=== PATIENT | male | born 1975 | race Hispanic/Latino ===

== ENCOUNTER 2017-11-03 12:48 | Emergency (ER) | payer SELFPAY ==
[2017-11-03] MEDS ORDERED: IBUPROFEN 600 MG TABLET ONE (13:30)
== END 2017-11-03 13:36 | disposition home or self-care (01) ==
LOC: EDH 12:48
DX: S60.221A Contusion of right hand, initial encounter (principal); Z72.0 Tobacco use; W23.0XXA Caught, crushed, jammed, or pinched between moving objects, initial encounter; Y93.89 Activity, other specified; Y92.810 Car as the place of occurrence of the external cause; Y99.8 Other external cause status
CPT/HCPCS: 73130

== ENCOUNTER 2020-07-20 22:54 | Emergency (ER) | payer OTHER ==
[2020-07-20] MEDS ORDERED: ACETAMINOPHEN-CODEINE 300/30MG TAB ONE (23:11)
== END 2020-07-20 23:40 | disposition home or self-care (01) ==
LOC: EDH 22:54
DX: S50.01XA Contusion of right elbow, initial encounter (principal); S70.01XA Contusion of right hip, initial encounter; Z91.030 Bee allergy status; Z91.038 Other insect allergy status; W01.0XXA Fall on same level from slipping, tripping and stumbling without subsequent striking against object, initial encounter; Y93.89 Activity, other specified; Y92.89 Other specified places as the place of occurrence of the external cause; Y99.8 Other external cause status

== ENCOUNTER 2021-03-24 09:15 | Emergency (ER) | payer SELFPAY ==
[~2021-03-24] VITALS: Ht 175.3 cm; Wt 70.3 kg
[2021-03-24 09:52] LABS: BASOPHILS % (AUTO) 0.8 % (0.0-5.0); EOSINOPHILS % (AUTO) 0.3 % (0.0-8.0); HEMATOCRIT 37.3 % (42-54); LYMPHOCYTES % (AUTO) 11.4 % (21.0-51.0); MEAN CORPUSCULAR HEMOGLOBIN 36.3 pg (27.0-33.0); MEAN CORPUSCULAR HGB CONC 34.9 g/dL (32.0-36.0); MEAN CORPUSCULAR VOLUME 104.2 fL (79-99); MONOCYTES % (AUTO) 13.2 % (3.0-13.0); PLATELET COUNT (AUTO) 108 K/uL (130-400); RED BLOOD CELL COUNT(AUTO) 3.58 MIL/uL (4.50-6.20); RED CELL DISTRIBUTION WIDTH 14.1 % (11.0-15.5); WHITE BLOOD COUNT (AUTO) 7.1 K/uL (4.8-10.8)
[2021-03-24 10:03] LABS: ALBUMIN 2.8 g/dL (3.5-5.0); BILIRUBIN,TOTAL 2.4 mg/dL (0.2-1.0); CREATININE 0.6 mg/dL (0.5-1.5); TOTAL PROTEIN, SERUM 8.1 g/dL (6.0-8.3)
[2021-03-24] MEDS ORDERED: POTASSIUM BICARB/CIT AC 25 MEQ TABLET.EFF ONE (10:05)
[2021-03-24] MEDS: POTASSIUM BICARB/CIT AC 25 MEQ TABLET.EFF PO SCH ×2 (10:08→10:33)
[2021-03-24 10:11] LABS: APPEARANCE,URINE Clear (CLEAR); BILIRUBIN,URINE Moderate (NEGATIVE); COLOR,URINE Dark Yellow (YELLOW); GLUCOSE, URINE (UA) Negative (NEGATIVE); KETONES,URINE >=80 mg/dL (NEGATIVE); LEUKOCYTE ESTERASE ,URINE Trace (NEGATIVE); NITRATE,URINE Negative (NEGATIVE); OCCULT BLOOD,URINE Negative (NEGATIVE); PROTEIN,URINE Trace mg/dL (NEGATIVE)
[2021-03-24 10:29] LABS: BACTERIA,URINE Few /HPF (None Seen); RBC,URINE None Seen /HPF (0-1); WBC,URINE 0-1 /HPF (0-1)
[2021-03-24 10:30] LABS: SQUAMOUS EPITHELIAL CELL,UR None Seen /HPF (0-2)
[2021-03-24] MEDS ORDERED: FAMO-136 PO (10:30)
[2021-03-24 11:46] VITALS: BP 143/65
== END 2021-03-24 11:48 | disposition home or self-care (01) ==
LOC: EDH 09:15
DX: K29.70 Gastritis, unspecified, without bleeding (principal); F10.10 Alcohol abuse, uncomplicated; E46 Unspecified protein-calorie malnutrition; R79.89 Other specified abnormal findings of blood chemistry
CPT/HCPCS: 36415; 80053; 81001; 82150; 83690; 85025

== ENCOUNTER 2021-04-15 09:33 | Emergency (ER) | payer SELFPAY ==
[~2021-04-15] VITALS: Ht 175.3 cm; Wt 65.8 kg
[~2021-04-15 09:33] MED LIST: FAMO-136 PO
[2021-04-15 09:57] LABS: BASOPHILS % (AUTO) 1.3 % (0.0-5.0); EOSINOPHILS % (AUTO) 2.2 % (0.0-8.0); HEMATOCRIT 35.2 % (42-54); LYMPHOCYTES % (AUTO) 25.5 % (21.0-51.0); MEAN CORPUSCULAR HGB CONC 34.4 g/dL (32.0-36.0); MEAN CORPUSCULAR VOLUME 104.8 fL (79-99); MONOCYTES % (AUTO) 13.3 % (3.0-13.0); NEUTROPHILS % (AUTO) 57.5 % (40.0-77.0); PLATELET COUNT (AUTO) 146 K/uL (130-400); RED BLOOD CELL COUNT(AUTO) 3.36 MIL/uL (4.50-6.20); RED CELL DISTRIBUTION WIDTH 13.9 % (11.0-15.5); WHITE BLOOD COUNT (AUTO) 5.5 K/uL (4.8-10.8)
[2021-04-15] MEDS ORDERED: NITROGLYCERIN 1GM OINT 1 INCH/1GM TD SCH (10:00)
[2021-04-15] MEDS ORDERED: ASPIRIN 81MG CHEW TAB PO SCH (10:00)
[2021-04-15 10:11] LABS: INR 1.39 (0.85-1.15); PROTHROMBIN TIME 14.7 SEC (9.6-11.6)
[2021-04-15 10:12] LABS: PARTIAL THROMBOPLASTIN TIME 34.9 SEC (26.3-35.5)
[2021-04-15 10:13] LABS: ALBUMIN 2.2 g/dL (3.5-5.0); BILIRUBIN,TOTAL 2.5 mg/dL (0.2-1.0); CREATININE 0.7 mg/dL (0.5-1.5); TOTAL PROTEIN, SERUM 7.2 g/dL (6.0-8.3)
[2021-04-15 10:14] LABS: POTASSIUM 2.9 mmol/L (3.5-5.1)
[2021-04-15 10:19] LABS: B-TYPE NATRIURETIC PEPTIDE 57 pg/mL (0-100)
[2021-04-15 10:35] LABS: AMPHET/METH SCREEN,URINE NEGATIVE (NEGATIVE); BARBITURATE SCREEN, URINE NEGATIVE (NEGATIVE); BENZODIAZEPINES SCREEN,URINE NEGATIVE (NEGATIVE); CANNABINOID SCREEN,URINE POSITIVE (NEGATIVE); COCAINE SCREEN,URINE NEGATIVE (NEGATIVE); OPIATE SCREEN,URINE NEGATIVE (NEGATIVE); PHENCYCLIDINE SCREEN,URINE NEGATIVE (NEGATIVE)
[2021-04-15] MEDS ORDERED: POTASSIUM BICARB/CIT AC 25 MEQ TABLET.EFF PO SCH (11:30)
[2021-04-15 11:58] VITALS: BP 136/88
[2021-04-15] MEDS ORDERED: SPIR25TA6 PO (12:46)
[2021-04-15 13:00] VITALS: BP 118/72
== END 2021-04-15 13:17 | disposition home or self-care (01) ==
LOC: EDH 09:33
DX: R18.8 Other ascites (principal); F10.10 Alcohol abuse, uncomplicated; E43 Unspecified severe protein-calorie malnutrition; Z87.891 Personal history of nicotine dependence; Z79.899 Other long term (current) drug therapy; Z98.890 Other specified postprocedural states
CPT/HCPCS: 36415; 71045; 76705; 80053; 80305; 83880; 84484; 85025; 85610; 85730

== ENCOUNTER 2021-04-28 11:48 | Emergency (ER) | payer SELFPAY ==
[~2021-04-28] VITALS: Ht 172.7 cm; Wt 70.3 kg
[~2021-04-28 11:48] MED LIST changes: +SPIR25TA6 PO
[2021-04-28 12:27] LABS: BASOPHILS % (AUTO) 0.7 % (0.0-5.0); EOSINOPHILS % (AUTO) 1.7 % (0.0-8.0); HEMATOCRIT 36.3 % (42-54); LYMPHOCYTES % (AUTO) 28.4 % (21.0-51.0); MEAN CORPUSCULAR HEMOGLOBIN 35.5 pg (27.0-33.0); MEAN CORPUSCULAR HGB CONC 34.7 g/dL (32.0-36.0); MEAN CORPUSCULAR VOLUME 102.3 fL (79-99); MONOCYTES % (AUTO) 12.3 % (3.0-13.0); NEUTROPHILS % (AUTO) 56.7 % (40.0-77.0); PLATELET COUNT (AUTO) 146 K/uL (130-400); RED BLOOD CELL COUNT(AUTO) 3.55 MIL/uL (4.50-6.20); RED CELL DISTRIBUTION WIDTH 13.2 % (11.0-15.5); WHITE BLOOD COUNT (AUTO) 5.5 K/uL (4.8-10.8)
[2021-04-28 12:40] LABS: APPEARANCE,URINE Cloudy (CLEAR); BILIRUBIN,URINE Moderate (NEGATIVE); COLOR,URINE Dark Yellow (YELLOW); GLUCOSE, URINE (UA) Negative (NEGATIVE); KETONES,URINE Trace mg/dL (NEGATIVE); LEUKOCYTE ESTERASE ,URINE Trace (NEGATIVE); NITRATE,URINE Positive (NEGATIVE); OCCULT BLOOD,URINE Negative (NEGATIVE); PH,URINE 5.5 (5.0-8.0); PROTEIN,URINE Trace mg/dL (NEGATIVE)
[2021-04-28 12:42] LABS: INR 1.29 (0.85-1.15); PROTHROMBIN TIME 13.7 SEC (9.6-11.6)
[2021-04-28 12:43] LABS: PARTIAL THROMBOPLASTIN TIME 32.4 SEC (26.3-35.5)
[2021-04-28 12:46] LABS: BACTERIA,URINE Rare /HPF (None Seen); MUCUS,URINE Moderate LPF (None Seen); RBC,URINE 0-1 /HPF (0-1); SQUAMOUS EPITHELIAL CELL,UR Rare /HPF (0-2); WBC,URINE 0-1 /HPF (0-1)
[2021-04-28 12:50] LABS: CREATININE 0.8 mg/dL (0.5-1.5); POTASSIUM 3.1 mmol/L (3.5-5.1)
[2021-04-28 12:55] LABS: ALBUMIN 2.3 g/dL (3.5-5.0); BILIRUBIN,TOTAL 1.9 mg/dL (0.2-1.0); TOTAL PROTEIN, SERUM 7.4 g/dL (6.0-8.3)
[2021-04-28] MEDS ORDERED: POTASSIUM BICARB/CIT AC 25 MEQ TABLET.EFF PO ONE (13:30)
[2021-04-28] MEDS ORDERED: ALBUMIN (HUMAN) 25% 200 ML IV ONE (15:03)
[2021-04-28] MEDS ORDERED: SODIUM BICARB 50MEQ 50ML VIAL 50 ML ONE (15:03)
[2021-04-28] MEDS ORDERED: CEFTRIAXONE 1G VIAL IVP ONE (16:00)
[2021-04-28] MEDS ORDERED: ALBUMIN (HUMAN) 25% 200 ML IV STA (17:30)
[2021-04-28] MEDS ORDERED: CEPH500B PO (17:48)
[2021-04-28 18:55] VITALS: BP 110/78
== END 2021-04-28 18:58 | disposition home or self-care (01) ==
LOC: EDH 11:48
DX: K70.31 Alcoholic cirrhosis of liver with ascites (principal); E87.6 Hypokalemia; N39.0 Urinary tract infection, site not specified; Z79.899 Other long term (current) drug therapy; Z87.891 Personal history of nicotine dependence
CPT/HCPCS: 36415; 49083; 71045; 80053; 81001; 83690; 83880; 84484; 85025; 85610; 85730; 87088; 96365; 96375; 99285; C1729; J0696; J3490; P9046

== ENCOUNTER 2021-04-30 16:54 | Emergency (ER) | payer SELFPAY ==
[~2021-04-30] VITALS: Ht 170.2 cm; Wt 65.8 kg
[~2021-04-30 16:54] MED LIST changes: +CEPH500B PO
[2021-04-30 16:55] VITALS: BP 95/52
[2021-04-30 18:15] LABS: EOSINOPHILS % (AUTO) 3.1 % (0.0-8.0); HEMATOCRIT 37.3 % (42-54); LYMPHOCYTES % (AUTO) 32.1 % (21.0-51.0); MEAN CORPUSCULAR HEMOGLOBIN 34.9 pg (27.0-33.0); MEAN CORPUSCULAR HGB CONC 33.5 g/dL (32.0-36.0); MEAN CORPUSCULAR VOLUME 104.2 fL (79-99); MONOCYTES % (AUTO) 12.1 % (3.0-13.0); NEUTROPHILS % (AUTO) 51.5 % (40.0-77.0); PLATELET COUNT (AUTO) 143 K/uL (130-400); RED BLOOD CELL COUNT(AUTO) 3.58 MIL/uL (4.50-6.20); RED CELL DISTRIBUTION WIDTH 13.1 % (11.0-15.5); WHITE BLOOD COUNT (AUTO) 4.9 K/uL (4.8-10.8)
[2021-04-30 18:28] LABS: CREATININE 0.7 mg/dL (0.5-1.5); POTASSIUM 3.7 mmol/L (3.5-5.1)
[2021-04-30 18:32] LABS: ALBUMIN 2.6 g/dL (3.5-5.0); BILIRUBIN,TOTAL 1.4 mg/dL (0.2-1.0)
[2021-04-30 18:44] LABS: B-TYPE NATRIURETIC PEPTIDE 28 pg/mL (0-100)
== END 2021-05-01 02:12 | disposition left against medical advice (07) ==
LOC: EDH 16:54
DX: N48.89 Other specified disorders of penis (principal); Z53.21 Procedure and treatment not carried out due to patient leaving prior to being seen by health care provider
CPT/HCPCS: 36415; 71045; 80053; 83880; 85025

== ENCOUNTER 2021-05-01 04:58 | Inpatient (IN) | payer SELFPAY ==
[~2021-05-01] VITALS: Ht 170.2 cm; Wt 65.0 kg
[2021-05-01 05:42] LABS: BASOPHILS % (AUTO) 0.9 % (0.0-5.0); EOSINOPHILS % (AUTO) 2.6 % (0.0-8.0); HEMATOCRIT 38.3 % (42-54); LYMPHOCYTES % (AUTO) 30.8 % (21.0-51.0); MEAN CORPUSCULAR HGB CONC 33.9 g/dL (32.0-36.0); MEAN CORPUSCULAR VOLUME 103.2 fL (79-99); MONOCYTES % (AUTO) 10.5 % (3.0-13.0); NEUTROPHILS % (AUTO) 54.7 % (40.0-77.0); PLATELET COUNT (AUTO) 128 K/uL (130-400); RED BLOOD CELL COUNT(AUTO) 3.71 MIL/uL (4.50-6.20); RED CELL DISTRIBUTION WIDTH 13.1 % (11.0-15.5); WHITE BLOOD COUNT (AUTO) 5.7 K/uL (4.8-10.8)
[2021-05-01 05:49] LABS: CREATININE 0.6 mg/dL (0.5-1.5); POTASSIUM 3.7 mmol/L (3.5-5.1)
[2021-05-01 05:54] LABS: ALBUMIN 2.6 g/dL (3.5-5.0); BILIRUBIN,TOTAL 1.5 mg/dL (0.2-1.0)
[2021-05-01] MEDS ORDERED: FUROSEMIDE 20MG VIAL ONE (06:50)
[2021-05-01] MEDS ORDERED: FUROSEMIDE 20MG VIAL IV SCH (07:00)
[2021-05-01 07:10] LABS: APPEARANCE,URINE Clear (CLEAR); BILIRUBIN,URINE Small (NEGATIVE); COLOR,URINE Dark Yellow (YELLOW); GLUCOSE, URINE (UA) Negative (NEGATIVE); KETONES,URINE Trace mg/dL (NEGATIVE); LEUKOCYTE ESTERASE ,URINE Negative (NEGATIVE); NITRATE,URINE Negative (NEGATIVE); OCCULT BLOOD,URINE Negative (NEGATIVE); PROTEIN,URINE POS 1+ mg/dL (NEGATIVE)
[2021-05-01 07:42] LABS: RBC,URINE 0-1 /HPF (0-1)
[2021-05-01 07:44] LABS: BACTERIA,URINE Rare /HPF (None Seen); SQUAMOUS EPITHELIAL CELL,UR Rare /HPF (0-2)
[2021-05-01] MEDS: SPIRONOLACTONE 25 MG TAB PO SCH (11:51)
[2021-05-01] MEDS: CEFTRIAXONE 1G VIAL IVP SCH (11:51)
[2021-05-01 22:23] VITALS: BP 105/64
[2021-05-02 03:55] VITALS: BP 103/64
[2021-05-02 07:00] VITALS: BP 113/74
[2021-05-02 07:47] LABS: HEMATOCRIT 35.8 % (42-54); MEAN CORPUSCULAR HGB CONC 34.6 g/dL (32.0-36.0); MEAN CORPUSCULAR VOLUME 101.1 fL (79-99); RED BLOOD CELL COUNT(AUTO) 3.54 MIL/uL (4.50-6.20); RED CELL DISTRIBUTION WIDTH 13.2 % (11.0-15.5); WHITE BLOOD COUNT (AUTO) 5.3 K/uL (4.8-10.8)
[2021-05-02 08:07] LABS: ALBUMIN 2.1 g/dL (3.5-5.0); BILIRUBIN,TOTAL 1.4 mg/dL (0.2-1.0); CREATININE 0.7 mg/dL (0.5-1.5); POTASSIUM 3.6 mmol/L (3.5-5.1); TOTAL PROTEIN, SERUM 6.1 g/dL (6.0-8.3)
[2021-05-02 08:27] LABS: ABG BASE EXCESS 1.7 mmol/L (-2.0-3.0); ABG HCO3 23.1 mmol/L (21.0-28.0); ABG OXYGEN SATURATION 96.3 % (95.0-99.0); ABG PCO2 28 mmHg (35-48)
[2021-05-02] MEDS ORDERED: FUROSEMIDE 40 MG TABLET PO SCH (09:00)
[2021-05-02] MEDS: SPIRONOLACTONE 25 MG TAB PO SCH (09:06)
[2021-05-02] MEDS: CEFTRIAXONE 1G VIAL IVP SCH (10:58)
[2021-05-02 11:00] VITALS: BP 107/67
[2021-05-02 15:00] VITALS: BP 104/61
[2021-05-02] MEDS: FUROSEMIDE 40 MG TABLET PO SCH (20:11)
[2021-05-02 21:26] VITALS: BP 114/69
[2021-05-03 02:10] VITALS: BP 106/65
[2021-05-03 04:57] VITALS: BP 104/65
[2021-05-03 07:00] VITALS: BP 111/70
[2021-05-03] MEDS ORDERED: FOLIC ACID 1 MG TABLET PO SCH (09:00)
[2021-05-03] MEDS ORDERED: THIAMINE HCL 100 MG TABLET PO SCH (09:00)
[2021-05-03 09:50] LABS: HEMATOCRIT 35.9 % (42-54); MEAN CORPUSCULAR HEMOGLOBIN 35.4 pg (27.0-33.0); MEAN CORPUSCULAR HGB CONC 34.8 g/dL (32.0-36.0); MEAN CORPUSCULAR VOLUME 101.7 fL (79-99); RED BLOOD CELL COUNT(AUTO) 3.53 MIL/uL (4.50-6.20); RED CELL DISTRIBUTION WIDTH 13.1 % (11.0-15.5); WHITE BLOOD COUNT (AUTO) 5.5 K/uL (4.8-10.8)
[2021-05-03 10:09] LABS: ALBUMIN 2.2 g/dL (3.5-5.0); BILIRUBIN,TOTAL 1.4 mg/dL (0.2-1.0); CREATININE 0.7 mg/dL (0.5-1.5); POTASSIUM 3.4 mmol/L (3.5-5.1); TOTAL PROTEIN, SERUM 6.3 g/dL (6.0-8.3)
[2021-05-03] MEDS: SPIRONOLACTONE 25 MG TAB PO SCH (10:34)
[2021-05-03] MEDS: CEFTRIAXONE 1G VIAL IVP SCH (10:34)
[2021-05-03] MEDS: FUROSEMIDE 40 MG TABLET PO SCH (10:44)
[2021-05-03 11:00] VITALS: BP 102/65
[2021-05-03] MEDS ORDERED: FURO20TA6 PO (14:40)
[2021-05-03 15:00] VITALS: BP 98/66
[2021-05-04 09:15] LABS: CHLAMYDIA DNA N.A.AMPLIFY Negative (Negative)
== END 2021-05-03 16:35 | disposition home or self-care (01) | DRG 729 ==
LOC: EDH 04:58 → INTOOBSV 04:59 → OBSVTOIN 04:59 → EDHIP 04:59 → 3CH 22:23
PROVIDERS: ADMIT Internal Medicine; ATTEND Internal Medicine
DX: N48.89 Other specified disorders of penis (principal); R18.8 Other ascites; D53.9 Nutritional anemia, unspecified; N50.89 Other specified disorders of the male genital organs; D69.59 Other secondary thrombocytopenia; Z20.822 Contact with and (suspected) exposure to COVID-19; N47.1 Phimosis; E88.09 Other disorders of plasma-protein metabolism, not elsewhere classified; K74.60 Unspecified cirrhosis of liver; Z87.891 Personal history of nicotine dependence
CPT/HCPCS: 36415; 36600; 71045; 74176; 76705; 80053; 80061; 81001; 82140; 82803; 82948; 83605; 83690; 85025; 85027; 85378; 87486; 87635; 87797; G0378; J0696; J1940

== ENCOUNTER 2021-05-19 11:29 | Emergency (ER) | payer SELFPAY ==
[~2021-05-19] VITALS: Ht 167.6 cm; Wt 63.5 kg
[~2021-05-19 11:29] MED LIST changes: -CEPH500B PO; +FURO20TA6 PO
[2021-05-19] MEDS ORDERED: FUROSEMIDE 20 MG TABLET PO SCH (12:30)
[2021-05-19 12:41] VITALS: BP 98/56
== END 2021-05-19 12:54 | disposition home or self-care (01) ==
LOC: EDH 11:29
DX: R18.8 Other ascites (principal); Z79.899 Other long term (current) drug therapy

== ENCOUNTER 2021-07-31 09:27 | Emergency (ER) | payer SELFPAY ==
[~2021-07-31] VITALS: Ht 172.7 cm; Wt 65.8 kg
[2021-07-31] MEDS ORDERED: ACETAMINOPHEN WITH CODEINE 1 TAB TAB PO SCH (10:00)
[2021-07-31 10:12] LABS: BASOPHILS % (AUTO) 0.5 % (0.0-5.0); HEMATOCRIT 35.6 % (42-54); LYMPHOCYTES % (AUTO) 38.4 % (21.0-51.0); MEAN CORPUSCULAR HEMOGLOBIN 32.7 pg (27.0-33.0); MEAN CORPUSCULAR HGB CONC 34.8 g/dL (32.0-36.0); MEAN CORPUSCULAR VOLUME 93.9 fL (79-99); MONOCYTES % (AUTO) 10.1 % (3.0-13.0); NEUTROPHILS % (AUTO) 42.8 % (40.0-77.0); PLATELET COUNT (AUTO) 142 K/uL (130-400); RED BLOOD CELL COUNT(AUTO) 3.79 MIL/uL (4.50-6.20); RED CELL DISTRIBUTION WIDTH 12.2 % (11.0-15.5); WHITE BLOOD COUNT (AUTO) 6.5 K/uL (4.8-10.8)
[2021-07-31 10:19] LABS: CREATININE 0.6 mg/dL (0.5-1.5); POTASSIUM 3.6 mmol/L (3.5-5.1)
[2021-07-31 10:26] LABS: ALBUMIN 3.8 g/dL (3.5-5.0); BILIRUBIN,TOTAL 0.6 mg/dL (0.2-1.0); TOTAL PROTEIN, SERUM 7.9 g/dL (6.0-8.3)
[2021-07-31] MEDS ORDERED: ACET1TAB25 PO (11:35)
[2021-07-31] MEDS ORDERED: HYD25 PO (11:35)
[2021-07-31 11:43] VITALS: BP 130/74
== END 2021-07-31 11:42 | disposition home or self-care (01) ==
LOC: EDH 09:27
DX: D17.39 Benign lipomatous neoplasm of skin and subcutaneous tissue of other sites (principal); M79.671 Pain in right foot; M79.672 Pain in left foot; Z79.899 Other long term (current) drug therapy
CPT/HCPCS: 36415; 76604; 80053; 85025

== ENCOUNTER 2021-08-03 10:44 | Emergency (ER) | payer SELFPAY ==
[~2021-08-03] VITALS: Ht 170.2 cm; Wt 70.3 kg
[~2021-08-03 10:44] MED LIST changes: +ACET1TAB25 PO; +HYD25 PO
[2021-08-03] MEDS ORDERED: CEPH500B PO (12:13)
[2021-08-03 12:18] VITALS: BP 118/68
[2021-08-03] MEDS ORDERED: TETANUS/DIPHTHERIA TOXOID [ADULT] 0.5 ML VIAL IM ONE ×2 (12:30→12:31)
== END 2021-08-03 12:38 | disposition home or self-care (01) ==
LOC: EDH 10:44
DX: L02.414 Cutaneous abscess of left upper limb (principal); L72.9 Follicular cyst of the skin and subcutaneous tissue, unspecified; Z79.899 Other long term (current) drug therapy
CPT/HCPCS: 10060; 87070; 87076; 90471; 90714

== ENCOUNTER 2021-11-10 11:59 | Emergency (ER) | payer OTHER, SELFPAY ==
[~2021-11-10] VITALS: Ht 172.7 cm; Wt 59.9 kg
[~2021-11-10 11:59] MED LIST changes: +ACET-2079 PO; -ACET1TAB25 PO; +CEPH500B PO
[2021-11-10 12:01] VITALS: BP 121/73
[2021-11-10 12:26] LABS: BASOPHILS % (AUTO) 0.5 % (0.0-5.0); EOSINOPHILS % (AUTO) 2.9 % (0.0-8.0); HEMATOCRIT 42.3 % (42-54); LYMPHOCYTES % (AUTO) 45.3 % (21.0-51.0); MEAN CORPUSCULAR HEMOGLOBIN 32.4 pg (27.0-33.0); MEAN CORPUSCULAR VOLUME 92.6 fL (79-99); MONOCYTES % (AUTO) 6.8 % (3.0-13.0); NEUTROPHILS % (AUTO) 44.3 % (40.0-77.0); PLATELET COUNT (AUTO) 129 K/uL (130-400); RED BLOOD CELL COUNT(AUTO) 4.57 MIL/uL (4.50-6.20); RED CELL DISTRIBUTION WIDTH 12.4 % (11.0-15.5); WHITE BLOOD COUNT (AUTO) 5.9 K/uL (4.8-10.8)
[2021-11-10 12:32] LABS: CREATININE 0.7 mg/dL (0.5-1.5); POTASSIUM 3.8 mmol/L (3.5-5.1)
[2021-11-10 12:39] LABS: ALBUMIN 4.2 g/dL (3.5-5.0); BILIRUBIN,TOTAL 0.6 mg/dL (0.2-1.0); TOTAL PROTEIN, SERUM 8.1 g/dL (6.0-8.3)
[2021-11-10 12:43] LABS: APPEARANCE,URINE SL CLOUDY (CLEAR); BILIRUBIN,URINE NEGATIVE (NEGATIVE); COLOR,URINE YELLOW (YELLOW); GLUCOSE, URINE (UA) NEGATIVE (NEGATIVE); KETONES,URINE 15 mg/dL (NEGATIVE); LEUKOCYTE ESTERASE ,URINE NEGATIVE (NEGATIVE); NITRATE,URINE NEGATIVE (NEGATIVE); OCCULT BLOOD,URINE NEGATIVE (NEGATIVE); PROTEIN,URINE NEGATIVE (NEGATIVE); UROBILINOGEN,URINE 0.2 mg/dL (0.2-1.0)
[2021-11-10 12:49] LABS: BACTERIA,URINE Rare /HPF (None Seen); RBC,URINE None Seen /HPF (0-1); SQUAMOUS EPITHELIAL CELL,UR Rare /HPF (0-2); WBC,URINE 0-1 /HPF (0-1)
[2021-11-10 12:50] LABS: AMORPHOUS SEDIMENT,UR Moderate /LPF (None Seen)
[2021-11-10] MEDS ORDERED: LACTULOSE 20 GM/30 ML UDCUP PO SCH (13:00)
[2021-11-10] MEDS ORDERED: LACT10SO9 PO (13:09)
[2021-11-10] MEDS ORDERED: DOCU-116 PO (13:09)
== END 2021-11-10 13:22 | disposition home or self-care (01) ==
LOC: EDH 11:59
DX: K59.00 Constipation, unspecified (principal); G62.9 Polyneuropathy, unspecified; Z79.899 Other long term (current) drug therapy
CPT/HCPCS: 36415; 80053; 81001; 83690; 85025

== ENCOUNTER 2022-01-19 08:27 | Emergency (ER) | payer OTHER, SELFPAY ==
[~2022-01-19] VITALS: Ht 172.7 cm; Wt 62.1 kg
[~2022-01-19 08:27] MED LIST changes: +DOCU-116 PO; +LACT10SO9 PO
[2022-01-19 09:44] LABS: CREATININE 0.8 mg/dL (0.5-1.5); POTASSIUM 3.7 mmol/L (3.5-5.1)
[2022-01-19 09:48] LABS: ALBUMIN 3.7 g/dL (3.5-5.0); BILIRUBIN,TOTAL 0.5 mg/dL (0.2-1.0); TOTAL PROTEIN, SERUM 7.4 g/dL (6.0-8.3)
[2022-01-19 10:08] LABS: APPEARANCE,URINE Clear (CLEAR); BILIRUBIN,URINE Negative (NEGATIVE); COLOR,URINE Yellow (YELLOW); GLUCOSE, URINE (UA) Negative (NEGATIVE); KETONES,URINE Negative (NEGATIVE); LEUKOCYTE ESTERASE ,URINE Negative (NEGATIVE); NITRATE,URINE Negative (NEGATIVE); OCCULT BLOOD,URINE Negative (NEGATIVE); PH,URINE 7.5 (5.0-8.0); PROTEIN,URINE Negative (NEGATIVE)
[2022-01-19 10:21] LABS: BASOPHILS % (AUTO) 0.6 % (0.0-5.0); EOSINOPHILS % (AUTO) 4.4 % (0.0-8.0); LYMPHOCYTES % (AUTO) 48.1 % (21.0-51.0); MEAN CORPUSCULAR HEMOGLOBIN 32.5 pg (27.0-33.0); MEAN CORPUSCULAR HGB CONC 34.5 g/dL (32.0-36.0); MEAN CORPUSCULAR VOLUME 94.1 fL (79-99); MONOCYTES % (AUTO) 8.9 % (3.0-13.0); NEUTROPHILS % (AUTO) 37.8 % (40.0-77.0); PLATELET COUNT (AUTO) 127 K/uL (130-400); RED BLOOD CELL COUNT(AUTO) 4.25 MIL/uL (4.50-6.20); RED CELL DISTRIBUTION WIDTH 12.5 % (11.0-15.5); WHITE BLOOD COUNT (AUTO) 5.2 K/uL (4.8-10.8)
[2022-01-19] MEDS ORDERED: DICYCLOMINE HCL 10 MG/5 ML ML PO ONE (11:30)
[2022-01-19] MEDS ORDERED: MAG/ALUM/SIMETH 30 ML UDCUP PO ONE (11:30)
[2022-01-19] MEDS ORDERED: LIDOCAINE HCL 2% VISCOUS 15 ML UDCUP PO ONE (11:30)
[2022-01-19] MEDS ORDERED: PANT40TA55 PO (11:37)
[2022-01-19 11:50] VITALS: BP 120/68
== END 2022-01-19 11:50 | disposition home or self-care (01) ==
LOC: EDH 08:27
DX: K70.30 Alcoholic cirrhosis of liver without ascites (principal); R14.0 Abdominal distension (gaseous); Z79.899 Other long term (current) drug therapy
CPT/HCPCS: 36415; 74176; 80053; 81003; 85025